=== PATIENT | female | born 1960 | race Caucasian/White ===

== ENCOUNTER 2016-06-01 07:19 | Day surgery (SDC) | payer BC ==
[~2016-06-01 07:19] MED LIST: Lactated Ringers 1,000 ML IV SCH
[2016-06-01] MEDS ORDERED: Propofol 200 MG/20 ML SDV IV ONE (08:45)
[2016-06-01] MEDS ORDERED: Ondansetron 4 MG/2 ML SDV IVPUSH ONE (08:45)
--- NOTE | 2016-06-01 08:56 | PCM.OPNOTE ---
- General Post-Op/Procedure Note Date of Surgery/Procedure: 06/01/16 Operative Procedure(s): c scope Findings: normal colon Pre Op Diagnosis: screening Post-Op Diagnosis: nl scope Anesthesia Technique: MAC Primary Surgeon: Lamont Hernandez Anesthesia Provider: Arya Shin Pathology: none Complications: None Condition: Good Free Text/Narrative:: see dictation
[2016-06-01 10:41] VITALS: BP 115/71
--- NOTE | 2016-06-01 13:17 | OR ---
DATE OF OPERATION: 06/01/2016 SURGEON: Lamont Hernandez MD PROCEDURE PERFORMED: Colonoscopy. PREOPERATIVE DIAGNOSIS: Need for screening C-scope. POSTOPERATIVE DIAGNOSIS: Normal colon. INDICATIONS FOR PROCEDURE: This is a 56-year-old white female who presents for her followup screening colonoscopy. She was offered and accepted same. DESCRIPTION OF OPERATION: After an excellent IV sedation was administered, digital rectal exam was performed. No marked abnormality was noted. The flexible colonoscope was inserted and advanced without difficulty to the cecum. The prep was excellent. The following findings were noted. Ascending colon, unremarkable. Transverse colon, unremarkable. Descending colon, unremarkable. Sigmoid and rectum, unremarkable. Colon was deflated as the scope was removed. The patient tolerated the procedure well. RECOMMENDATIONS: Repeat colonoscopy in 10 years. /[id number] /MODL
== END 2016-06-01 09:50 | disposition home or self-care (01) ==
LOC: FB.SDS 07:19
PROVIDERS: ATTEND Surgery
DX: Z12.11 Encounter for screening for malignant neoplasm of colon (principal); E03.9 Hypothyroidism, unspecified; F32.9 Major depressive disorder, single episode, unspecified; Z91.09 Other allergy status, other than to drugs and biological substances; Z79.899 Other long term (current) drug therapy; Z90.49 Acquired absence of other specified parts of digestive tract; Z90.710 Acquired absence of both cervix and uterus; Z98.890 Other specified postprocedural states
CPT/HCPCS: 45378; J7120; J2405; J2704

== ENCOUNTER 2019-04-08 07:59 | Day surgery (SDC) | payer BC ==
[2019-04-08] MEDS ORDERED: Lactated Ringers 1,000 ML IV SCH (08:00)
[2019-04-08] MEDS ORDERED: Lidocaine 2% 5 ML SDV INJECT ONE (08:00)
[2019-04-08] MEDS ORDERED: Propofol 200 MG/20 ML SDV IV ONE (08:00)
--- NOTE | 2019-04-08 09:19 | PCM.HP.2 ---
H&P History of Present Illness - General Date of Service: 04/08/19 Admit Problem/Dx: Admission Diagnosis/Problem Admission Diagnosis/Problem Esophagogastroduodenoscopy - History of Present Illness Initial Comments - Free Text/Narative: Pt presents for an egd. Has a hx of reflux disease and is on a PPI. Has occasional issue with heartburn and epigastric discomfort. - Related Data Allergies/Adverse Reactions: Allergies Allergy/AdvReac Type Severity Reaction Status Date / Time feathers Allergy Cannot Verified 06/01/16 07:55 Remember wool Allergy Cannot Verified 06/01/16 07:55 Remember Home Medications: Home Meds Calcium Carbonate/Vitamin D3 [Calcium 600 + Vit D 200] 2 ea PO DAILY 05/31/16 [ History] Cholecalciferol (Vitamin D3) [Vitamin D3] 2,000 mg PO DAILY 05/31/16 [History] Flaxseed Oil 1,000 mg PO DAILY 05/31/16 [History] Ibuprofen [Motrin] 600 mg PO Q4H PRN 05/31/16 [History] Multivitamin with Minerals [Multiple Vitamin] 1 ea PO DAILY 05/31/16 [History] [place]-3/DHA/Epa/Fish Oil [Fish Oil 1,000 mg Softgel] 1 ea PO DAILY 05/31/16 [ History] Thyroid,Pork [[place] Thyroid] 45 mg PO DAILY 05/31/16 [History] estradioL [Estradiol] 0.25 mg PO DAILY 05/31/16 [History] Citalopram Hydrobromide [Celexa] 20 mg PO DAILY 04/08/19 [History] Fish Oil/[place]-3 Fatty Acids [Fish Oil 1,000 MG] 1 gm PO DAILY 04/08/19 [History ] Pantoprazole Sodium [Protonix] 40 mg PO DAILY 04/08/19 [History] Past Medical History HEENT History: Reports: Impaired Vision Cardiovascular History: Reports: None Respiratory History: Reports: None Gastrointestinal History: Genitourinary History: Reports: None ACDS BLOCK 1 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 OB/BYN History: I PARA I Neurological History: Reports: None Psychiatric History: Reports: Depression, Mood Swings Other Psychiatric History: SAD SYNDROME Endocrine/Metabolic History: Reports: Hypothyroidism Hematologic History: Reports: Iron Deficiency Immunologic History: Reports: None Oncologic (Cancer) History: Reports: None Dermatologic History: Reports: None - Infectious Disease History Infectious Disease History: Reports: Chicken Pox, Mumps, Rubella - Past Surgical History Head Surgeries/Procedures: Reports: None HEENT Surgical History: Reports: Laser Surgery GI Surgical History: Reports: Cholecystectomy, Colonoscopy, EGD Female Surgical History: Reports: Hysterectomy Musculoskeletal Surgical History: Reports: Carpal Tunnel Other Musculoskeletal Surgeries/Procedures:: BILATERAL CARPAL TUNNEL 07/07 2012, BILATERAL BUNIONECTOMY Social & Family History - Family History Family Medical History: Noncontributory - Tobacco Use Smoking Status *Q: Never Smoker - Caffeine Use Caffeine Use: Reports: Coffee, Soda Other Caffeine Use: RARE - Recreational Drug Use Recreational Drug Use: No Drug Use in Last 12 Months: No H&P Review of Systems - Review of Systems: Review Of Systems: See Below General: Reports: Weight Gain HEENT: Reports: No Symptoms, Other (dry eyes) Pulmonary: Reports: No Symptoms Cardiovascular: Reports: No Symptoms Gastrointestinal: Reports: Abdominal Pain Exam - Exam Exam: See Below - Vital Signs Vital Signs: Last Vital Signs Temp 97.9 F 04/08/19 08:18 Pulse 64 04/08/19 08:18 Resp 20 04/08/19 08:18 BP 119/75 04/08/19 08:18 Pulse Ox 98 04/08/19 08:18 - Exam General: Alert, Oriented, Cooperative Lungs: Clear to Auscultation, Normal Respiratory Effort Cardiovascular: Regular Rate, Regular Rhythm GI/Abdominal Exam: Normal Bowel Sounds, Soft, Non-Tender, No Distention, No Mass Sepsis Event Note - Focused Exam Vital Signs: Vital Signs Temp Pulse Resp BP Pulse Ox 04/08/19 08:18 97.9 F 64 20 119/75 98 Date Exam was Performed: 04/08/19 Time Exam was Performed: 09:16 *Q Meaningful Use (ADM) - VTE *Q VTE Pharmacological Contraindications *Q: Patient Scheduled Surgery - Problem List (1) GERD (gastroesophageal reflux disease) SNOMED Code(s): 597485334 ICD Code: K21.9 - GASTRO-ESOPHAGEAL REFLUX DISEASE WITHOUT ESOPHAGITIS Status: Acute Current Visit: Yes Problem List Initiated/Reviewed/Updated: Yes Orders Last 24hrs: Active Orders 24 hr Category Date Time Status Patient Status [ADT] Routine ADT 04/08/19 08:00 Ordered Patient to Empty Bladder [RC] ASDIRECTED Care 04/08/19 08:00 Active Verify Patient Consent Obtain [RC] ASDIRECTED Care 04/08/19 08:00 Active Nothing Per Oral Diet [DIET] Diet 04/08/19 Breakfast Ordered Lactated Ringers [Ringers, Lactated] 1,000 ml Med 04/08/19 08:00 Active IV ASDIRECTED Peripheral IV Insertion Adult [OM.PC] Routine Oth 04/08/19 08:00 Ordered Resuscitation Status Routine Resus Stat 04/07/19 11:13 Ordered Medication Orders Lactated Ringer's (Ringers, Lactated) 1,000 mls @ 125 mls/hr IV ASDIRECTED [place] Last Admin: 04/08/19 08:49 Dose: 125 mls/hr Assessment/Plan Comment:: edg. procedure and risks explained to the pt to include bleeding, infection perforation. Expressed understanding and asks us to proceed. - Mortality Measure Prognosis:: Good
--- NOTE | 2019-04-08 09:45 | PCM.OPNOTE ---
- General Post-Op/Procedure Note Date of Surgery/Procedure: 04/08/19 Operative Procedure(s): egd with bx Findings: gastritis. normal appearing esophagus Pre Op Diagnosis: epgastric abd pain. hx of reflux Post-Op Diagnosis: gastritis. normal appearing esophagus Anesthesia Technique: MAC Primary Surgeon: Lamont Hernandez Anesthesia Provider: Jayna Horton Pathology: stomach and esophagus Complications: None Condition: Good Free Text/Narrative:: see dictation
[2019-04-08 10:21] VITALS: BP 118/75; PULSE 61
--- NOTE | 2019-04-08 15:04 | OR ---
DATE OF OPERATION: 04/08/2019 SURGEON: Lamont Hernandez MD PROCEDURE PERFORMED: Esophagogastroduodenoscopy with cold forceps biopsy. PREOPERATIVE DIAGNOSES: History of gastroesophageal reflux disease and epigastric abdominal pain. POSTOPERATIVE DIAGNOSES: Gastritis and normal-appearing esophagus. INDICATIONS FOR PROCEDURE: This is a 59-year-old white female who has a longstanding history of reflux disease. Recently, she has been noting some epigastric abdominal discomfort as well, and was offered and accepted an esophagogastroduodenoscopy. DESCRIPTION OF OPERATION: After an excellent IV sedation was administered, the bite block was inserted. The flexible endoscope was passed without difficulty down the patient's esophagus into the stomach. Stomach was insufflated, scope passed through the pylorus to the second portion of the duodenum and slowly withdrawn. The following findings were noted. Duodenum was unremarkable. Stomach demonstrated some diffuse gastritis, more prominent in the area of the antrum. Multiple biopsies were taken. GE junction measured approximately 40 cm. The esophagus did not demonstrate any evidence of irritation or inflammation, but due to her symptoms, we did obtain several biopsies. Stomach was deflated. Scope was removed. Results will be sent to the patient by letter. /[id number] /MODL
== END 2019-04-08 11:00 | disposition home or self-care (01) ==
LOC: FB.SDS 07:59
PROVIDERS: ATTEND Surgery
DX: K21.0 Gastro-esophageal reflux disease with esophagitis (principal); K29.50 Unspecified chronic gastritis without bleeding; K22.8 Other specified diseases of esophagus; F32.9 Major depressive disorder, single episode, unspecified; E03.9 Hypothyroidism, unspecified; Z91.09 Other allergy status, other than to drugs and biological substances; Z79.899 Other long term (current) drug therapy
CPT/HCPCS: 43239; 88305; 88342; J2001; J2704; J7120

== ENCOUNTER 2020-09-02 06:51 | Day surgery (SDC) | payer BC ==
[~2020-09-02 06:51] MED LIST changes: +Sodium Chloride 0.9% 10 ML Syringe FLUSH PRN
[2020-09-02] MEDS ORDERED: Ondansetron 4 MG/2 ML SDV IVPUSH ONE (06:52)
[2020-09-02] MEDS ORDERED: Propofol 200 MG/20 ML SDV IV ONE (06:52)
[2020-09-02] MEDS ORDERED: Lidocaine 2% 5 ML SDV INJECT ONE (06:52)
--- NOTE | 2020-09-02 08:40 | PCM.OPNOTE ---
- General Post-Op/Procedure Note Date of Surgery/Procedure: 09/02/20 Operative Procedure(s): EGD with biopsy Findings: Normal appearing structures on EGD Pre Op Diagnosis: Epigastric pain Post-Op Diagnosis: Normal EGD Anesthesia Technique: MAC Primary Surgeon: Narendra Perez Pathology: Biopsies of duodenum and stomach EBL in mLs: 3 Complications: None Condition: Good
--- NOTE | 2020-09-02 09:01 | HP ---
ADMISSION DATE: 09/02/2020 HISTORY OF PRESENT ILLNESS: This 60-year-old female is here for upper endoscopy. She has been having symptoms of upper abdominal pain as well as nausea and irregular loose stools. This often occurs after drinking items such as beer, coffee, and sometimes after taking medications such as Celebrex. Her most recent EGD was approximately 3 years ago. PAST MEDICAL HISTORY: Notes diagnosis of hypothyroidism. PAST SURGICAL HISTORY: She has had previous cholecystectomy and carpal tunnel release as well as bunionectomy and hysterectomy. SOCIAL HISTORY: Noncontributory. FAMILY HISTORY: Noncontributory. REVIEW OF SYSTEMS: Shows that otherwise she has been feeling well without any recent cough, cold, or sore throat symptoms. She did not have any difficulty with the coronavirus and has been vaccinated. She is not experiencing any chest pain or palpitations. PHYSICAL EXAMINATION: VITAL SIGNS: Temperature 99, pulse 68, blood pressure is 114/74. GENERAL: The patient is an alert adult female. She is in no acute distress. HEENT: Head is normocephalic. No scleral icterus. HEART: Regular without murmur. LUNGS: Clear. ABDOMEN: Soft and not distended. IMPRESSION: Epigastric pain. PLAN: EGD. INFORMED CONSENT: I have discussed the proposed EGD with the patient. She understands the indications and risks and agrees to proceed. /[id number] JODI/MOOSE
[2020-09-02 09:11] VITALS: BP 122/63; PULSE 66
--- NOTE | 2020-09-02 10:52 | OR ---
DATE OF OPERATION: 09/02/2020 SURGEON: Narendra Perez MD PREOPERATIVE DIAGNOSIS: Epigastric pain. POSTOPERATIVE DIAGNOSIS: Normal upper endoscopy. OPERATION PERFORMED: Esophagogastroduodenoscopy with biopsy. INDICATIONS FOR SURGERY: This 60-year-old female has symptoms of intermittent epigastric and left upper quadrant abdominal pain as well as some occasional loose stools. She comes for diagnostic upper endoscopy. FINDINGS: The lining of the patient's esophagus, stomach, and duodenum appeared normal. No ulcerations or erosions were seen, and structures appeared anatomically correct. DESCRIPTION OF PROCEDURE: The patient was taken to the procedure room. She was given intravenous sedation and with her in the left lateral decubitus position, the Olympus gastroscope was advanced through a mouth guard into the oral cavity. The scope was then carefully advanced through the oropharynx down into the esophagus and then advanced through the esophagus, stomach, and into the duodenum where examination to the fourth portion was performed. Careful examination of the duodenum was performed and random biopsies of the duodenum were taken because of the patient's symptoms. The scope was withdrawn back into the stomach where full examination including retroflexed examination of the fundus was performed. Random biopsies of both the antrum as well as the greater curvature are taken to rule out H pylori. The GE junction and esophagus were then carefully re-examined as the scope was removed. The scope was withdrawn and the patient was awakened, taken from the procedure room in satisfactory condition. ESTIMATED BLOOD LOSS: 3 mL. COMPLICATIONS: None. PROGNOSIS: Good. /[id number] JODI/MOOSE
== END 2020-09-02 09:16 | disposition home or self-care (01) ==
LOC: FB.SDS 06:51
PROVIDERS: ATTEND Surgery
DX: K29.50 Unspecified chronic gastritis without bleeding (principal); K31.89 Other diseases of stomach and duodenum; K21.9 Gastro-esophageal reflux disease without esophagitis; E03.9 Hypothyroidism, unspecified; Z90.49 Acquired absence of other specified parts of digestive tract; Z98.890 Other specified postprocedural states; Z79.899 Other long term (current) drug therapy; Z79.890 Hormone replacement therapy
CPT/HCPCS: 00731; 43239; 88305; 88342; J2405; J2704; J7120